=== PATIENT | male | born 1965 | race Caucasian/White ===

== ENCOUNTER 2023-11-29 13:26 | Outpatient (CLI) | payer MEDICAID | END 2023-11-29 23:59 | disposition home or self-care (01) | LOC: MRI 13:26 | PROVIDERS: ATTEND Nurse Practitioner Family | DX: M47.817 Spondylosis without myelopathy or radiculopathy, lumbosacral region (principal); M48.07 Spinal stenosis, lumbosacral region; M51.27 Other intervertebral disc displacement, lumbosacral region; M25.48 Effusion, other site | CPT/HCPCS: 70200; 72148 ==

== ENCOUNTER 2024-02-28 12:34 | Outpatient (CLI) | payer MEDICAID | END 2024-02-28 23:59 | disposition home or self-care (01) | LOC: MRI 12:34 | PROVIDERS: ATTEND Nurse Practitioner Family | DX: M71.22 Synovial cyst of popliteal space [Baker], left knee (principal); M25.562 Pain in left knee | CPT/HCPCS: 73721 ==